=== PATIENT | male | born 1960 | race Caucasian/White ===

== ENCOUNTER 2018-03-26 16:36 | Inpatient (IN) | payer SELFPAY ==
[~2018-03-26] VITALS: Ht 177.8 cm; Wt 65.8 kg
--- NOTE | 2018-03-26 16:39 | NUR ---
PT FOUND SITTING IN CAR AT [facility]. PT STATES THAT HE RATHER GO TO THE ER INSTEAD OF WITH [facility]. PT ADMITS TO ETOH ABUSE OF WHISKEY. PT IS AOX4.. PT DENIES ANY C/P, SOB, N/V OR WEAKNESS.
[2018-03-26 17:09] LABS: HEMATOCRIT 47.6 % (39.0-50.0); HEMOGLOBIN 16.6 g/dl (14.0-18.0); IMMATURE GRANULOCYTES 0.2 % (0.0-5.0); MEAN CELL VOLUME 92.6 fL CALC (80.0-100.0); MEAN CORPUSCULAR HGB 32.3 pG CALC (26.0-32.0); MEAN CORPUSCULAR HGB CONC 34.9 g/L CALC (32.0-36.0); NEUT# 2.28 thou/uL (1.82-7.42); RED BLOOD COUNT 5.14 mill/uL (4.70-6.10); RED CELL DISTRI WIDTH 12.9 % (11.5-15.5)
--- NOTE | 2018-03-26 17:39 | NUR ---
PT ON STRETCHER, REPEATEDLY ASKING FOR FOOD, ADVISED THAT HE WILL HAVE TO WAIT TILL LAB RESULTS ARE BACK. PT IS STAYING ON THE STRETCHER.
[2018-03-26 18:22] LABS: ALBUMIN 4.5 g/dL (3.2-5.0); ALKALINE PHOSPHATASE 67 u/l (38-126); ANION GAP 20 (6-22 (CALC)); BILIRUBIN, TOTAL 0.9 mg/dL (0.0-1.4); BUN 15 mg/dL (9-20); BUN/CREATININE RATIO 19 (12-20 (CALC)); CARBON DIOXIDE 26 mmol/l (22-30); CHLORIDE 102 mmol/l (95-108); CREATININE 0.8 mg/dL (0.7-1.3); GFR > 60 ML/MIN (>=60 (CALC)); GFR FOR AFR.AMER. > 60 ML/MIN (>=60 (CALC)); LIPASE 347 u/l (23-300); POTASSIUM 4.6 mmol/l (3.5-5.1); SGOT/AST 56 u/l (17-59); SGPT/ALT 31 u/l (21-72); SODIUM 144 mmol/l (137-146); TOTAL PROTEIN 7.8 g/dL (6.3-8.2)
[2018-03-26 18:34] LABS: ETHYL ALCOHOL 508 mg/dl (0-30)
--- NOTE | 2018-03-26 18:39 | NUR ---
PT FED, PT LAYING ON STRETCHER, IV PATENT WITH FLUIDS FLOWING.
--- NOTE | 2018-03-26 19:26 | NUR ---
REPORT CALLED TO EDITA FLORENTINO- ACCEPTED PT
--- NOTE | 2018-03-26 20:26 | NUR ---
PT RESTING ON STRETCHER, AWAITING ADMISSION
[2018-03-26 20:30] VITALS: BP 127/78
--- NOTE | 2018-03-26 20:30 | NUR ---
PT ARRIVED TO THE FLOOR VIA STRETCHER ACCOMPANIED BY ED NURSE. PT APPEARS TO BE IN STABLE CONDITION UPON ARRIVING TO THE FLOOR. V/S ASSESSED AND PT WEIGHED AND ORIENTED TO ROOM,CALL SYSTEM, LIGHTS, BED AND TV. IV SITE FLUSHED/PATENT. PT HAS BEEN ENCOURAGED TO CALL IF ANY NEEDS ARISE, CALL LIGHT AT SIDE.
--- NOTE | 2018-03-26 20:45 | NUR ---
Admission Note Report Given to: NIYAH FLORENTINO Transported by: Wheelchair X Stretcher Transported with: X Nurse Transporter X Patent IV O2 X Park Worker Supervisor [place]SP[place] [facility] [place]
[2018-03-26 21:16] LABS: URINE BILIRUBIN - DIPSTICK NEGATIVE (NEGATIVE); URINE BLOOD DIPSTICK NEGATIVE (NEGATIVE); URINE COLOR YELLOW; URINE GLUCOSE - DIPSTICK NEGATIVE (NEGATIVE); URINE KETONE NEGATIVE (NEGATIVE); URINE LEUK ESTERASE NEGATIVE (NEGATIVE); URINE NITRITE - DIPSTICK NEGATIVE (Negative); URINE PH 5.5 (4.5-8.0); URINE PROTEIN - DIPSTICK TRACE mg/dL (NEG-TRACE); URINE SPECIFIC GRAVITY 1.025
[2018-03-26 21:17] LABS: URINE CLARITY CLEAR
--- NOTE | 2018-03-26 21:25 | NUR ---
PT ASSESSED AND MEDICATED FOR MILD TREMORS IN HANDS. IV FLUIDS ARE RUNNING NS @100. SEIZURE PRECAUTIONS ARE BEING TAKEN DUE TO PT REPORT OF HISTORY OF SEIZURES UPON PRIOR DETOX. PT IS LOCX4 AT THIS TIME. HE IS DRINKING WATER 800CC SINCE ARRIVING TO THE FLOOR AND ASKING FOR MORE. I DISCUSSED POC W/PT. WILL CONTINUE TO MONITOR NEEDED. CALL LIGHT IS W/IN REACH, LIGHTS ARE TURNED DOWN LOW AND TV IS ON. PT REPORTS SOME DIZZINESS SO HAS BEEN INSTRUCTED TO CALL IF HE NEEDS TO GET UP. URINAL IS AT BEDSIDE AND PT ENCOURAGED TO USE URINAL FOR ACCURATE I&O'S. PT HAS PRODUCTIVE COUGH W/YELLOW SPUTUM AND REPORTS HAVING HAD THAT "AWHILE," NO LENGTH OF TIME PROVIDED. DENIES ANY OTHER NEEDS AT THIS TIME.
[2018-03-26 21:28] LABS: BARBITURATES POSITIVE (NEGATIVE); COCAINE NEGATIVE (NEGATIVE); METHADONE NEGATIVE (NEGATIVE); OXCYCODONE NEGATIVE (NEGATIVE); TETRAHYDROCANNABIONOL NEGATIVE (NEGATIVE); TRICYLIC ANTIDEPRESSANTS NEGATIVE (NEGATIVE)
[2018-03-27] VITALS (7 sets, daily range): BP systolic 122–150; BP diastolic 77–92
--- NOTE | 2018-03-27 02:51 | NUR ---
PT IS SLEEPING SOUNDLY AT THIS TIME. CAP AND JEANS ARE STILL ON, BUT PT IS IN BED WITH COVERS ON. IV FLUIDS RUNNING @100CC/HR. NO S/S OF DISTRESS. CALL LIGHT AT SIDE.
--- NOTE | 2018-03-27 07:00 | NUR ---
BEDSIDE REPORT RECEIVED BY BEBETO. PT IS SLEEPING IN BED WITH NO S/S OF DISTRESS NOTED. CALL LIGHT IN REACH.
--- NOTE | 2018-03-27 08:00 | NUR ---
MEDICATED PT WITH TYLENOL FOR A HEADACHE. ASSESSMENT DONE. TELE IN PLACE. RESPS EVEN AND UNLABORED. NS 100ML/HR INFUSING WELL. SAFETY PRECAUTIONS REINFORCED AND CALL LIGHT IN REACH.
--- NOTE | 2018-03-27 09:32 | NUR ---
MEDICATED PT WITH ATIVAN PER NÉSTOR VILLAGRAN. PT IS ANXIOUS. PT IS A&O X3. PT DENIES ANY OTHER NEEDS AT THIS TIME. CALL LIGHT IN REACH.
--- NOTE | 2018-03-27 12:00 | NUR ---
PT IS SLEEPING IN BED WITH NO S/S OF DISTRESS NOTED. CALL LIGHT IN REACH. BANANA BAG INFUSING WELL.
[2018-03-27 13:01] LABS: ALKALINE PHOSPHATASE 85 u/l (38-126); AMYLASE 47 u/l (30-110); BILIRUBIN, TOTAL 1.1 mg/dL (0.0-1.4); BUN 11 mg/dL (9-20); BUN/CREATININE RATIO 19 (12-20 (CALC)); CARBON DIOXIDE 28 mmol/l (22-30); CHLORIDE 101 mmol/l (95-108); CREATININE 0.6 mg/dL (0.7-1.3); GFR > 60 ML/MIN (>=60 (CALC)); GFR FOR AFR.AMER. > 60 ML/MIN (>=60 (CALC)); LIPASE 151 u/l (23-300); SGOT/AST 46 u/l (17-59); SGPT/ALT 37 u/l (21-72)
[2018-03-27 13:04] LABS: ALBUMIN 2.9 g/dL (3.2-5.0); ANION GAP 10 (6-22 (CALC)); POTASSIUM 3.5 mmol/l (3.5-5.1); SODIUM 135 mmol/l (137-146); TOTAL PROTEIN 5.3 g/dL (6.3-8.2)
--- NOTE | 2018-03-27 16:00 | NUR ---
PT IS RESTING IN BED. PT STILL FEELS ANXIOUS BUT STATED THAT THE ATIVAN DID HELP. PT DENIES ANY NEEDS AT THIS TIME. CALL LIGHT IN REACH.
--- NOTE | 2018-03-27 19:22 | NUR ---
BEDSIDE REPORT RECEIVED FROM DAY NURSE. PT IS LOW FOWLERS POSITION IN BED WATCHING TV AND REPORTS HAVING A "ROUGH DAY, BUT FEELING BETTER RIGHT NOW." ENCOURAGED TO CALL IF ANY NEEDS ARISE AND NOT TO GET UP BY HIMSELF. NO S/S OF DISTRESS NOTED, NO SIGN OF TREMORS AT THIS TIME AND PT IS LOCX3. WILL FOLLOW-UP WITH FULL ASSESSMENT, NEURO CHECKS AND MEDICATIONS ORDERED.
--- NOTE | 2018-03-27 20:35 | NUR ---
PT MEDICATED FOR HEADACHE AND MILD HAND TREMORS WHEN ARMS EXTENDED, CIWA 13 AT THIS TIME. NEURO'S INTACT. SKIN IS RED/FLUSHED AND WARM/DRY TO TOUCH. LOCX3 AND AWARE OF SITUATION. PT REQUESTED JELLO AND ICE CHIPS/WATER IS AT BEDSIDE, THESE HAVE BEEN PROVIDED AT THIS TIME. DENIES ANY OTHER NEEDS AT THIS TIME. WILL CONTINUE TO MONITOR/ASSESS. PT REPOSITIONED IN BED AND ENCOURAGED TO CALL IF HE HAS ANY NEEDS OF ASSISTANCE.
--- NOTE | 2018-03-28 03:34 | NUR ---
PT IS SLEEPING AT THIS TIME, IV FLUIDS REPLENISHED. NO S/S OF DISTRESS. PT HAD MUCH DIFFICULTY GOING TO SLEEP THROUGHOUT THE NIGHT
[2018-03-28 04:49] VITALS: BP 132/80
--- NOTE | 2018-03-28 05:40 | NUR ---
PT HAS MILD TRIMMERS AND DENIES ANY FURTHER HALLUCINATIONS, BUT DOES REPORT MILD "SPECKLES" IN VISION "ONCE IN AWHILE." PT DENIES HEADACHE AND IS LOCX3 AND AWARE OF SITUATION. MEURO'S INTACT. WILL CONTINUE TO MONITOR.
[2018-03-28 05:46] LABS: ANION GAP 10 (6-22 (CALC)); BUN 6 mg/dL (9-20); BUN/CREATININE RATIO 13 (12-20 (CALC)); CARBON DIOXIDE 27 mmol/l (22-30); CHLORIDE 100 mmol/l (95-108); CREATININE 0.5 mg/dL (0.7-1.3); GFR > 60 ML/MIN (>=60 (CALC)); GFR FOR AFR.AMER. > 60 ML/MIN (>=60 (CALC)); LIPASE 176 u/l (23-300); MAGNESIUM 1.7 mg/dL (1.6-2.3); POTASSIUM 3.4 mmol/l (3.5-5.1); SODIUM 133 mmol/l (137-146)
[2018-03-28 06:02] LABS: MEAN CELL VOLUME 92.8 fL CALC (80.0-100.0); MEAN CORPUSCULAR HGB 32.5 pG CALC (26.0-32.0); RED BLOOD COUNT 4.19 mill/uL (4.70-6.10); RED CELL DISTRI WIDTH 12.2 % (11.5-15.5)
[2018-03-28 06:03] LABS: HEMATOCRIT 38.9 % (39.0-50.0); HEMOGLOBIN 13.6 g/dl (14.0-18.0)
--- NOTE | 2018-03-28 07:00 | NUR ---
REPORT RECEIVED BY MACO. PT IS SLEEPING IN BED WITH NO S/S OF DISTRESS NOTED. CALL LIGHT IN REACH.
[2018-03-28 07:25] VITALS: BP 126/84
--- NOTE | 2018-03-28 09:02 | NUR ---
MEDICATED PT WITH ATIVAN. PT IS ANXIOUS. PT DENIES AUDITORY AND VISUAL DISTURBANCES. PT IS A&O X3. PT DENIES PAIN AT THIS TIME. NS 100ML/HR INFUSING WELL. RESPS EVEN AND UNLABORED. SAFETY PRECAUTIONS REINFORCED AND CALL LIGHT IN REACH.
[2018-03-28 11:35] VITALS: BP 129/86
--- NOTE | 2018-03-28 12:00 | NUR ---
PT IS REFUSING HIS FOOD STATED HE DID NOT LIKE THE TASTE. TOLD PT I WILL ORDRED HIM A DIFFERNET TRAY FOR LUNCH. PT DENIES ANY OTHER NEEDS AT THIS TIME. CALL LIGHT IN REACH.
[2018-03-28 15:35] VITALS: BP 129/89
--- NOTE | 2018-03-28 15:40 | NUR ---
PT IS RESTING IN BED. PT STILL HAS MILD-MODERATE TREMORS. PT DENIES NEEDS AT THIS TIME. BANANA BAG AT 75ML/HR INFUSING WELL. CALL LIGHT IN REACH.
--- NOTE | 2018-03-28 19:10 | NUR ---
REPORT RECEIVED FROM DAY NURSE. PT IS IN BED LOW FOWLERS POSITION WATCHING TV. DENIES ANY DISTRESS AT THIS TIME. ONLY MILD TREMOR FELT NOT VISIBLE. DENIES HALLUCINATIONS OR AUDITORY DISTURBANCES/REPORTS VERY MILD SPECKLES IN VISION "ONCE IN AWHILE." NO S/S OF DISTRESS AT THIS TIME. CALL LIGHT AT BEDSIDE AND PT ENCOURAGED TO CALL. HE ALSO REPORTED BEING DIZZY IN SHOWER EARLIER IN THE DAY SO I HAVE ASKED HIM NOT TO GET UP BY HIMSELF AND TO USE CALL LIGHT FOR ASSISTANCE NEEDED.
[2018-03-28 19:15] VITALS: BP 128/79
--- NOTE | 2018-03-28 20:35 | NUR ---
PT ASSESSED, NO S/S OF DISTRESS NOTED, LUNG SOUNDS ARE CLEAR, ABD NON-TENDER OR DISTENDED, NO TACTILE DISTURBANCES, VERY MILD TREMORS UPON TOUCH, NO SWEATS OR HALLUCINATIONS, DENIES N/V/P. WILL CONTINUE TO MONITOR.
[2018-03-29] VITALS (7 sets, daily range): BP systolic 124–141; BP diastolic 74–87
--- NOTE | 2018-03-29 00:19 | NUR ---
PT MEDICATED FOR MILD ANXIETY, REPORT OF FEELING "CLAMMY," PT FEELS WARM AND DRY TO TOUCH, PT REPORTS SEEING "SPECKLES" INFREQUENTLY AND FEELS LIKE HE MAY BE SEEING "SHADOWS." NO OBVIOUS TREMORS, BUT MAY BE FELT MILDLY TO TOUCH. CIWA 9 AT THIS TIME. ICE WATER PROVIDED AND URINAL EMPTIED OF 400CC OF CLEAR YELLOW URINE. BANANA BAG WAS COMPLETED AT THIS TIME. IV SITE SL. nO OTHER S/O DISTRESS NOTED. CALL LIGHT IS W/IN REACH AND PT ENCOURAGED TO CALL IF ANY NEEDS ARISE.
--- NOTE | 2018-03-29 03:30 | NUR ---
PT APPEARS TO BE SLEEPING SOUNDLY AT THIS TIME. LIGHTS ARE OFF, TV ON LOW, CALL LIGHT AT BEDSIDE.
[2018-03-29 04:45] LABS: HEMATOCRIT 41.3 % (39.0-50.0); MEAN CELL VOLUME 94.5 fL CALC (80.0-100.0); MEAN CORPUSCULAR HGB CONC 33.9 g/L CALC (32.0-36.0); RED BLOOD COUNT 4.37 mill/uL (4.70-6.10); RED CELL DISTRI WIDTH 12.5 % (11.5-15.5)
[2018-03-29 04:57] LABS: ANION GAP 10 (6-22 (CALC)); BUN 11 mg/dL (9-20); BUN/CREATININE RATIO 19 (12-20 (CALC)); CARBON DIOXIDE 26 mmol/l (22-30); CHLORIDE 103 mmol/l (95-108); CREATININE 0.6 mg/dL (0.7-1.3); GFR > 60 ML/MIN (>=60 (CALC)); GFR FOR AFR.AMER. > 60 ML/MIN (>=60 (CALC)); MAGNESIUM 1.8 mg/dL (1.6-2.3); POTASSIUM 3.7 mmol/l (3.5-5.1); SODIUM 136 mmol/l (137-146)
--- NOTE | 2018-03-29 05:50 | NUR ---
PT REPORTED ITCHING ALL OVER, HE HAS HIVES TO RIGHT BUTTOCKS AND FEET ARE WARM TO TOUCH, REDDENED AND ITCHING. PHYSICIAN NOTIFIED/ORDERS RECEIVED. WILL MONITOR CLOSELY.
--- NOTE | 2018-03-29 07:00 | NUR ---
SHIFT CHANGE REPORT FROM EDITA, PT AWAKE AND ORIENTED, TELE MONITOR IN PLACE, DENIED PAIN, ADVISED TO CALL FOR ASSISTANCE FOR AMBULATION/OOB ACTIVITIES AND HE STATED UNDERSTANDING, WILL CONTINUE TO MONITOR, CALL CHAIREZ IN REACH.
--- NOTE | 2018-03-29 12:10 | NUR ---
SLEEPING AT THIS TIME BUT AWAKENS TO VERBAL STIMULI, LETHARGIC BUT ORIENTED, MEAL ON BST BUT PT STATED HE IS NOT READY TO EAT AND REQUEST TO LEAVE MEAL ON TABLE HE WILL EAT LATER, WILL CONTINUE TO MONITOR.
--- NOTE | 2018-03-29 20:00 | NUR ---
REPORT GIVEN BY RICH FLORENTINO. PATIENT RESTING IN BED WATCHING TV. FALL PRECAUTIONS IN PLACE, PLAN OF CARE DISCUSSED, AND PATIENT INFORMED TO CALL WITH ANY QUESTIONS OF CONCERNS. RESP EVEN AND UNLABORED.
--- NOTE | 2018-03-29 21:00 | NUR ---
CWIA PERFORMED AT BEDSIDE, MEDICATED PER MD ORDERS.
--- NOTE | 2018-03-29 23:51 | NUR ---
PATIENT RESTING WITH EYES CLOSED. RESP EVEN AND UNLABORED. NO S/S OF DISTRESS NOTED. MULTI VIT BAG FINISHED AND IV FLUSHED.
--- NOTE | 2018-03-30 04:23 | NUR ---
PATIENT RESTING WITH EYES CLOSED. RESP EVEN AND UNLABORED. NO S/S OF DISTRESS NOTED.
[2018-03-30 04:43] VITALS: BP 116/74
--- NOTE | 2018-03-30 07:00 | NUR ---
SHIFT CHANGE REPORT FROM [place], PT RESTING IN BED WITH EYES CLOSED BUT RESPONDS TO VERBAL STIMULI, ORIENTED, NO C/O PAIN BUT DOES C/O MILD TREMORS, TELE MONITOR IN PLACE, CALL CHAIREZ IN REACH.
[2018-03-30 09:00] VITALS: BP 125/73
[2018-03-30] MEDS ORDERED: LIBRIUM25 M1 PO (10:54)
[2018-03-30] MEDS ORDERED: PANTOPRAZOLE SO40 M1 PO (10:54)
[2018-03-30 11:20] VITALS: BP 127/83
--- NOTE | 2018-03-30 13:47 | NUR ---
Discharge instructions given. Patient verbalizes understanding of same. Discharged in stable condition via Ambulatory to Home with *Other. All belongings sent with pt. PT STATED [facility] AND NEEDS CAB FARE TO GET THERE, CM & DATABASE ANALYST MADISYN NOTIFIED, ARRANGEMENTS MADE HAVE PT TRANSPORTED TO TRUCK SITE.
== END 2018-03-30 13:50 | disposition home or self-care (01) | DRG 896 ==
LOC: ED 16:36 → ED-I 18:22 → ED 18:41 → MS2 18:42
PROVIDERS: Family Medicine; Nurse Practitioner Family; ADMIT Internal Medicine Nephrology; ATTEND Internal Medicine Nephrology
DX: F10.231 Alcohol dependence with withdrawal delirium (principal); K85.20 Alcohol induced acute pancreatitis without necrosis or infection; F10.229 Alcohol dependence with intoxication, unspecified; F17.210 Nicotine dependence, cigarettes, uncomplicated; T78.40XA Allergy, unspecified, initial encounter; T42.4X5A Adverse effect of benzodiazepines, initial encounter; Y90.8 Blood alcohol level of 240 mg/100 ml or more
CPT/HCPCS: J1650; J2060; S0164